=== PATIENT | male | born 1985 | race Asian ===

== ENCOUNTER 2019-03-05 11:06 | Emergency (ER) | payer BC ==
[~2019-03-05] VITALS: Ht 165.1 cm; Wt 72.1 kg
[2019-03-05 11:08] VITALS: Ht 165.1 cm; Wt 72.1 kg
[2019-03-05 12:22] LABS: BASOPHIL % 0.6 % (0-2); PLATELET COUNT 322 x10^3mcL (130-400); RED CELL DISTRIBUTION WIDTH 11.8 % (11.5-14.5)
[2019-03-05 12:29] LABS: microscopic required? NO
[2019-03-05 12:29] LABS: CALCIUM 9.4 mg/dL (8.5-10.1); CARBON DIOXIDE 27.8 mmol/L (21-32); CHLORIDE SERUM 102 mmol/L (98-107); CREATININE SERUM 0.9 mg/dL (0.7-1.3); GFR1 > 60 mL/min; GLUCOSE SERUM 97 mg/dL (74-106); SODIUM SERUM 140 mmol/L (136-145)
[2019-03-05 12:40] LABS: ALBUMIN 4.5 g/dL (3.4-5.0); ALKALINE PHOSPHATASE 68 U/L (46-116); ALT/SGPT 45 U/L (16-63); AST/SGOT 13 U/L (15-37); BILIRUBIN TOTAL 0.61 mg/dL (0.20-1.00); HDL CHOLESTEROL 44 mg/dL (40-60); LIPASE 111 IU/L (73-393); MAGNESIUM 2.3 mg/dL (1.8-2.4); T4(THYROXINE) 9.6 ug/dL (4.7-13.3); TOTAL PROTEIN, SERUM 8.1 g/dL (6.4-8.2)
[2019-03-05 12:46] LABS: CHOLESTEROL 205 mg/dL (<200)
[2019-03-05 13:06] LABS: UA SPECIFIC GRAVITY <=1.005 (1.005-1.035); urine erythrocyte NEGATIVE (NEGATIVE)
[2019-03-05 13:19] LABS: AMPHETAMINE QUAL UR NONE DETECTED (See below)
[2019-03-05 15:18] VITALS: BP 128/74
== END 2019-03-05 15:40 | disposition home or self-care (01) ==
LOC: ED 11:06
PROVIDERS: Emergency Medicine
DX: R00.2 Palpitations (principal); R42 Dizziness and giddiness; I47.1 Supraventricular tachycardia
CPT/HCPCS: 83880; J7030